=== PATIENT | female | born 1975 | race Caucasian/White ===

== ENCOUNTER 2023-07-12 13:02 | Emergency (ER) | payer MEDICAID ==
[~2023-07-12] VITALS: Ht 170.2 cm; Wt 74.8 kg
[2023-07-12 13:09] VITALS: BP 127/85
[2023-07-12] MEDS ORDERED: OMEPRAZOLE DR40 MG (13:14)
[2023-07-12 13:15] VITALS: BP 114/68
[2023-07-12 13:30] VITALS: BP 123/79
[2023-07-12 13:45] VITALS: BP 123/73
[2023-07-12] MEDS ORDERED: BACTRIM DS1 TAB PO (13:59)
[2023-07-12 14:14] VITALS: BP 123/73
== END 2023-07-12 14:20 | disposition home or self-care (01) ==
LOC: ED 13:02
DX: S81.811A Laceration without foreign body, right lower leg, initial encounter (principal); W26.8XXA Contact with other sharp object(s), not elsewhere classified, initial encounter; Y93.H9 Activity, other involving exterior property and land maintenance, building and construction; Y92.007 Garden or yard of unspecified non-institutional (private) residence as the place of occurrence of the external cause